=== PATIENT | male | born 1990 | race Hispanic/Latino ===

== ENCOUNTER → 2020-09-17 07:56 | Outpatient (CLI) | payer BC, SELFPAY ==
[2020-09-17] MEDS: COVID-19 VACC #1, MRNA(MOD) 100 MCG/0.5 ML VIAL IM (08:03)
== END ==
PROVIDERS: Visit Provider Internal Medicine
DX: Z23 Encounter for immunization (principal)
CPT/HCPCS: 0011A; 91301

== ENCOUNTER → 2020-10-23 07:59 | Outpatient (CLI) | payer BC, SELFPAY ==
[2020-10-23] MEDS: COVID-19 VACC #2, MRNA(MOD) 100 MCG/0.5 ML VIAL IM (08:09)
== END ==
PROVIDERS: Visit Provider Internal Medicine
DX: Z23 Encounter for immunization (principal)
CPT/HCPCS: 0012A; 91301

== ENCOUNTER → 2020-10-28 09:28 | Outpatient (CLI) | payer BC, OTHER, SELFPAY ==
[2020-10-28 10:38] LABS: Add Manual Diff / Slide Review NO; Basophils Absolute Auto 100 /uL (0-100); Basophils Percent Auto 1.2 % (0-2); Eosinophils Absolute Auto 300 /uL (0-450); Eosinophils Percent Auto 6.7 % (2-4); Hematocrit 44.6 % (41-53); Hemoglobin 15.5 g/dL (13.5-17.5); Lymphocytes Absolute Auto 2100 /uL (1100-4500); Lymphocytes Percent Auto 42.2 % (25-40); Mean Corpuscular HGB Conc 34.7 % (30-36); Mean Corpuscular Hemoglobin 28.5 PG (26-34); Mean Corpuscular Volume 82.3 fL (80-100); Monocytes Absolute Auto 500 /uL (0-900); Monocytes Percent Auto 8.9 % (3-14); Neutrophils Absolute Auto 2100 /uL (1500-7000); Platelet Count 251 X10^3/uL (150-400); Red Blood Cell Count 5.42 X10^6/uL (4.5-5.9); Red Cell Distribution Width 12.7 % (11.6-14.8); White Blood Cell Count 5.1 X10^3/uL (4.5-11.0)
[2020-10-28 10:43] LABS: Hemoglobin A1C% w Est Avg Glu 4.7 % (4.0-6.0)
[2020-10-28 10:45] LABS: Alanine Aminotransferase 40 IU/L (<50); Albumin 4.2 g/dL (3.5-5.0); Albumin Globulin Ratio 1.5 (1.0-2.8); Alkaline Phosphatase 58 U/L (38-126); Aspartate Aminotransferase 32 IU/L (17-59); BUN Creatinine Ratio 21.2 (6-22); Bilirubin Total 1.4 mg/dL (0.2-1.3); Blood Urea Nitrogen 18 mg/dL (9-20); Calcium 9.1 mg/dL (8.4-10.2); Carbon Dioxide 26 mmol/L (22-32); Chloride 105 mmol/L (98-107); Estimated Glomerular Filt Rate > 60.0 mL/min (>60); Globulin 2.8 g/dL (1.7-4.1); Glucose 77 mg/dL (70-100); HEMOLYSIS 16 (0-50); Potassium 3.9 mmol/L (3.4-5.1); Sodium 139 mmol/L (137-145)
[2020-10-28 11:17] LABS: TSH w/ Reflex to FT4 1.79 uIU/mL (0.47-4.68)
== END ==
PROVIDERS: PCP Family Medicine; Referring Provider Family Medicine; Visit Provider Family Medicine
DX: G47.33 Obstructive sleep apnea (adult) (pediatric) (principal)
CPT/HCPCS: 36415; 80053; 83036; 84443; 85025

== ENCOUNTER → 2021-03-16 08:36 | Outpatient (CLI) | payer BC, OTHER, MEDICAID, SELFPAY ==
--- NOTE | 2021-03-16 08:39 | DI.RAD.S_ITS ---
PROCEDURE: XR CHEST 2V INDICATIONS: chronic cough TECHNIQUE: 2 views of the chest were acquired. COMPARISON: None. FINDINGS: Surgical changes and devices: None. Lungs and pleura: Lungs are clear. No pleural effusions or pneumothorax. Mediastinum: Mediastinal contours are normal. Heart size is normal. Bones and chest wall: No suspicious bony abnormalities. Soft tissues appear unremarkable. IMPRESSION: No acute cardiopulmonary abnormalities or focal airspace disease. Dictated by: Arnie Torres M.D. on 03/16/2021 at 8:51 Approved by: Arnie Torres M.D. on 03/16/2021 at 8:52
[2021-03-16 09:45] LABS: Add Manual Diff / Slide Review NO; Basophils Absolute Auto 100 /uL (0-100); Basophils Percent Auto 1.2 % (0-2); Eosinophils Absolute Auto 200 /uL (0-450); Hematocrit 44.8 % (41-53); Hemoglobin 15.9 g/dL (13.5-17.5); Lymphocytes Absolute Auto 2200 /uL (1100-4500); Lymphocytes Percent Auto 41.3 % (25-40); Mean Corpuscular HGB Conc 35.5 % (30-36); Mean Corpuscular Hemoglobin 28.8 PG (26-34); Mean Corpuscular Volume 81.2 fL (80-100); Monocytes Absolute Auto 400 /uL (0-900); Monocytes Percent Auto 6.9 % (3-14); Neutrophils Absolute Auto 2400 /uL (1500-7000); Neutrophils Percent Auto 46.6 % (50-75); Platelet Count 215 X10^3/uL (150-400); Red Blood Cell Count 5.52 X10^6/uL (4.5-5.9); Red Cell Distribution Width 12.8 % (11.6-14.8); White Blood Cell Count 5.2 X10^3/uL (4.5-11.0)
[2021-03-16 10:02] LABS: Alanine Aminotransferase 30 IU/L (<50); Albumin 4.1 g/dL (3.5-5.0); Albumin Globulin Ratio 1.8 (1.0-2.8); Alkaline Phosphatase 57 U/L (38-126); Aspartate Aminotransferase 23 IU/L (17-59); BUN Creatinine Ratio 16.5 (6-22); Blood Urea Nitrogen 15 mg/dL (9-20); Calcium 9.2 mg/dL (8.4-10.2); Carbon Dioxide 27 mmol/L (22-32); Chloride 105 mmol/L (98-107); Estimated Glomerular Filt Rate > 60.0 mL/min (>60); Globulin 2.3 g/dL (1.7-4.1); Glucose 93 mg/dL (70-100); HEMOLYSIS < 15 (0-50); Potassium 4.3 mmol/L (3.4-5.1); Sodium 140 mmol/L (137-145); Total Protein 6.4 g/dL (6.3-8.2)
== END ==
PROVIDERS: PCP Family Medicine; Referring Provider Family Medicine; Visit Provider Family Medicine
DX: K21.9 Gastro-esophageal reflux disease without esophagitis (principal); R05.3 Chronic cough; R10.9 Unspecified abdominal pain
CPT/HCPCS: 36415; 71046; 80053; 85025

== ENCOUNTER → 2021-08-25 13:02 | Outpatient (CLI) | payer BC, OTHER, SELFPAY ==
[2021-08-25 19:12] LABS: COVID19 -Nasal RAPID Negative (Negative)
== END ==
PROVIDERS: PCP Family Medicine; Visit Provider Family Medicine Sleep Medicine
DX: Z20.822 Contact with and (suspected) exposure to COVID-19 (principal)
CPT/HCPCS: 87635; C9803

== ENCOUNTER 2021-08-26 10:47 | Day surgery (SDC) | payer BC, OTHER, MEDICAID, SELFPAY ==
[2021-08-25 13:11] VITALS: BMI 31.8
[2021-08-26] VITALS (10 sets, daily range): BP systolic 85–120; BP diastolic 25–69; PULSE 58–79; RESP 12–18; TEMP 36.1–37.2; O2SAT 94–100; BMI 29.8
--- NOTE | 2021-08-26 11:43 | SUR.OPER ---
Supine on padded OR bed, head on pillow, arms secured on padded arm boards at <90 degrees abduction, legs uncrossed, safety belt at thigh, tape over blanket over lower legs.
[2021-08-26] MEDS: LACTATED RINGERS 1,000 ML 42 ML IV (11:49)
--- NOTE | 2021-08-26 12:37 | PM.PREOP ---
Pre-operative Note Interval Note History & Physical reviewed/Exam performed by Physician: Yes Changes to H&P: No
--- NOTE | 2021-08-26 12:38 | P.HP_ITS ---
History of Present Illness History of Present Illness Date Patient Seen: 08/26/21 Time Patient Seen: 12:38 Chief complaint: Chronic tonsillitis Narrative: 31-year-old male with chronic tonsillitis, hypertrophy, recurrent acute tonsillitis and JAIRON with frequent sore throats, incompletely managed with medical therapy, presents for tonsillectomy with possible adenoidectomy. He was last seen in clinic 07/13/2021, Cefzil given at that point was helpful for 2-1/2-3 weeks but the pain has now recurred. No other interval health changes, continue CPAP. No recent cough, cold, or fever. Patient History Medical History Abdominal pain Carcinoid, of appendix Chest wall discomfort Chronic cough Chronic tonsillitis GERD (gastroesophageal reflux disease) History of appendicitis JAIRON (obstructive sleep apnea) Recurrent acute tonsillitis Throat pain Tonsillar hypertrophy Surgical History History of appendectomy (06/12/08) Family & Social History Family History Brother Diabetes mellitus Social History: household members spouse Tobacco & Substance use: Smoking Status Never smoker alcohol intake current alcohol intake frequency holiday/special occasion Substance Use Type does not use Meds Home Medications and Allergies Home Medications Medication Instructions Recorded Confirmed Type omeprazole 20 mg capsule,delayed 20 mg PO DAILY #90 cap 03/16/21 08/26/21 Rx release [facility] See Rx Instructions .ROUTE .COMPLEX 08/26/21 08/26/21 History ibuprofen 400 mg PO PRN PRN 08/26/21 08/26/21 History Allergies Allergy/AdvReac Type Severity Reaction Status Date / Time Penicillins Allergy Severe Hives Verified 08/26/21 11:16 Review of Systems Review of Systems Narrative: Negative except as listed in the HPI Exam Vital Signs (past 8 hours): - 08/26/21 11:30 Temperature 99.0 F Pulse Rate 79 Respiratory Rate 16 Blood Pressure 120/67 Pulse Oximetry 100 Oxygen Delivery Method Room Air Narrative Exam Narrative: Well-developed well-nourished male in no acute distress. Three to 4+ tonsils. Heart regular rate and rhythm without murmur, lungs clear to auscultation bilaterally Assessment & Plan Assessment & Plan narrative: Assessment: Chronic tonsillitis, tonsillar hypertrophy, JAIRON, recurrent acute tonsillitis, throat pain Plan: Following discussion of the material risks benefits complications and alternatives, the patient elected to proceed with tonsillectomy and possible adenoidectomy as outpatient. He will continue his CPAP postoperatively. Time Spent With Patient Critical Care time: I spent a total of [] minutes of critical care time on this patient's care tod ay; this time is exclusive of procedural time.
--- NOTE | 2021-08-26 12:40 | PM.OP.1 ---
Operative Date/Time/Diagnoses Date of procedure: 08/26/21 Pre-op diagnosis: Chronic tonsillitis, tonsillar hypertrophy, recurrent acute tonsillitis, throat pain, JAIRON Post-op diagnosis: same Procedure & Clinicians Procedure: Tonsillectomy Same procedure as scheduled: Yes Indications: 31-year-old male with the above diagnoses incompletely managed with medical therapy presents for the above procedure. Following discussion of the nature risks benefits complications and alternatives, he elected to proceed. Surgeon: Fahad Benavides Click Yes if Unassisted: Yes Anesthesia Type: General and Local Operative Notes Findings: Intact palate, single uvula, 3 to 4+ tonsils with inflammation, no sig adenoid tissue Estimated Blood Loss (mL): 30 Procedure in detail: Following identification and confirmation of consent the patient was brought to the operating room suite and placed in the supine position. General endotracheal anesthesia was administered. A head wrap, shoulder roll, and mouth gag were placed and a red rubber catheter was inserted through the nostril and out the mouth to retract the soft palate. There was no significant adenoid tissue. The left tonsil was retracted medially and suction electrocautery on a setting of 30 was used to dissect the tonsil in a subcapsular plane, followed by hemostasis with the same. This process was repeated on the right side with identical findings. The tonsillar fossae were superficially infiltrated bilaterally with a 1:1 mixture of 1% lidocaine 1 100,000 epinephrine and 0.25% Marcaine 1 to 110345 epinephrine. Mouth gag and rubber catheter were removed and the patient was extubated in the operating room and taken to the recovery room in stable condition without known complication. Complications: none Post-operative Condition: stable Disposition: same day surgery Plan for aftercare: Push fluids, alternate Tylenol and Advil every 3 hours for baseline pain control, oxycodone for breakthrough pain. Soft diet 2 full weeks, no heavy lifting or straining 2 weeks.
[2021-08-26] MEDS: LIDOCAINE 1% W/EPI 20 ML INJ (13:20)
[2021-08-26] MEDS: BUPIVACAINE 0.25% (PF) VIAL 30 ML INJ (13:21)
[2021-08-26] MEDS: OXYMETAZOLINE NASAL SPRAY 15 ML 2 SPRAYS NASAL (13:27)
[2021-08-26] MEDS: fentaNYL 100 MCG/2 ML INJ IV (13:56)
[2021-08-26] MEDS: ONDANSETRON 4 MG/2 ML INJ IV (14:01)
[2021-08-26] MEDS: OXYCODONE 5 MG/5 ML ORAL SOLUTION PO (14:14)
--- NOTE | 2021-08-26 14:58 | SUR.PHASEII ---
pt given discharge instructions. Says he is ready to go home. Pain remains at a 5. pt states he is feelng better. pt had popcicles and apple sauce. Talked at length about pt having soft foods and no lifting and straining.
== END 2021-08-26 15:04 | disposition home or self-care (01) ==
PROVIDERS: PCP Family Medicine; Referring Provider Otolaryngology; Visit Provider Otolaryngology
PROC: (CPT 42826; principal; 2021-08-26 12:30)
DX: J03.90 Acute tonsillitis, unspecified (principal); J03.91 Acute recurrent tonsillitis, unspecified; G47.33 Obstructive sleep apnea (adult) (pediatric); K21.9 Gastro-esophageal reflux disease without esophagitis
CPT/HCPCS: 42826; J1100; J2405; J2704; J3010